=== PATIENT | female | born 1960 | race Caucasian/White ===

== ENCOUNTER → 2018-03-27 23:50 | Outpatient (CLI) | payer OTHER, SELFPAY ==
[2018-03-27 17:15] VITALS: BMI 32.1
[2018-03-28 00:45] LABS: Absolute Lymphocyte Count 2.29 X10^3/ul (0.83-4.51); Absolute Neutrophil Count 3.9 X10^3/uL (2.0-7.7); Basophil# 0.05 X10^3/uL; Basophil% 0.7 % (0-1); Eosinophil# 0.13 X10^3/uL; Eosinophils% 1.9 % (0-5); Hematocrit 43.5 % (37-47); Hemoglobin 15.1 g/dl (12.0-15.0); Lymphocyte # 2.29 X10^3/ul (4.0); Lymphocyte % 33.9 % (19-41); Mean Corp Hgb Conc 34.7 g/gl (32-36); Mean Corpuscular Hgb 32.4 pg (27.0-32.0); Mean Corpuscular Volume 93.3 fL (81-99); Mean Platelet Vol. 10.2 fl (6.2-12.0); Monocyte# 0.41 X10^3/uL; Monocyte% 6.1 % (0-10); Neutrophil # 3.86 X10^3/uL (2.7-7.7); Neutrophil % 57.3 % (47-70); Platelet Count 261 K/mm3 (150-450); RBC Distribution Width CV 11.7 % (11.6-14.6); RBC Distribution Width SD 39.8 fl (35.1-43.9); Red Blood Count 4.66 M/mm3 (4.2-5.4); White Blood Count 6.8 K/mm3 (4.4-11.0)
[2018-03-28 00:46] LABS: POSITIVE COUNT NO; POSITIVE DIFFERENTIAL NO; POSITIVE MORPHOLOGY NO
[2018-03-28 00:48] LABS: ALB/GLOB Ratio 1.2 RATIO (0.9-2.4); AST(SGOT) 19 U/L (15-37); Alanine Aminotransfer ALT/SGPT 20 U/L (13-56); Albumin, Serum 3.8 g/dL (3.2-5.0); Alkaline Phosphatase 60 U/L (45-117); Anion Gap 5 (5-15); BUN 13 mg/dL (7-18); BUN/Creat Ratio 16.7 RATIO (10-20); Calcium,Total 8.6 mg/dL (8.5-10.1); Chloride 105 mmol/L (98-107); Cholesterol 259 mg/dL (200); Creatinine, Serum 0.78 mg/dL (0.55-1.02); EST Glomerular Filtration Rate 81 mL/min (>60); Est Glom Filt Rate - Afr Amer 98 mL/min (>60); Globulin 3.2 g/dL (2.2-4.2); Glucose 87 mg/dL (74-106); High Density Lipoprotein 55 mg/dL; Potassium 4.7 mmol/L (3.5-5.1); Sodium Level 139 mmol/L (136-145); Thyroid Stim Hormone (TSH) 0.27 uIU/mL (0.358-3.74); Triglycerides 207 mg/dL; Very Low Density Lipoprotein 41 mg/dL (5-40)
--- OUTSIDE RECORDS SUMMARY | 2018-05-30 05:49 | XMS RPT_ITS ---
:1960 Author Organization OHIP Care Team Providers Name Role Phone Collin Mcnallya CONTACT LENS BLOCKER-C Attending Unavailable Mcnally, Fransisco CONTACT LENS BLOCKER-C Referring Unavailable MCNALLY FRANSISCO L Referring Unavailable ANETTE SEVERINO Referring Unavailable MCNALLY, FRANSISCO Referring Unavailable MCNALLY FRANSISCO Primary Care Unavailable PROBLEMS PROBLEMS DATE TYPE CONDITION / CODE ATTENDING STATUS SOURCE 03/28/2018 Unknown E03.9 - Mcnally, Active [place] Hypothyroidism, [place] CONTACT LENS BLOCKER-C [facility] unspecified / Hospital E03.9(ICD-10) Repository 03/28/2018 Unknown F41.9 - Anxiety Mcnally, Active [place] disorder, [place] CONTACT LENS BLOCKER-C [facility] unspecified / Hospital F41.9(ICD-10) Repository 03/28/2018 Unknown I10 - Essential Mcnally, Active [place] (primary) [place] CONTACT LENS BLOCKER-C [facility] hypertension / Hospital I10(ICD-10) Repository 12/07/2017 Active Unknown / NA Active [place] [facility] Other [place] Repository 12/07/2017 Admitting Unknown / NA Active [facility] diagnosis [facility](Unknown[facility] Repository PROCEDURES PROCEDURES No Procedure Records FoundRESULTS RESULTS CBC W/DIFF, AUTOMATED Collected: 03/27/2018 Status: F Source: [place] 5:35 PM [facility] REPOSITORY TYPE CODE TESTS RESULT OUT OF RANGE REFERENCE UNITS LAB L100.1000 4.4-11.0 K/mm3 Normal WBC 6.8 LAB L100.1200 4.2-5.4 M/mm3 Normal RBC 4.66 LAB L100.1300 12.0-15.0 g/dl High HGB 15.1 LAB L100.1400 37-47 % Normal HCT 43.5 LAB L100.1500 81-99 fL Normal MCV 93.3 LAB L100.1600 27.0-32.0 pg High MCH 32.4 LAB L100.1700 32-36 g/gl Normal MCHC 34.7 LAB L100.1810 11.6-14.6 % Normal RDW CV 11.7 LAB L100.1820 35.1-43.9 fl Normal RDW SD 39.8 LAB L100.1900 150-450 K/mm3 Normal PLT 261 LAB L100.2000 6.2-12.0 fl Normal MPV 10.2 LAB L100.2100 47-70 % Normal NEUT% 57.3 LAB L100.2200 19-41 % Normal LY% 33.9 LAB L100.2300 0-10 % Normal MONO% 6.1 LAB L100.2400 0-5 % Normal EO% 1.9 LAB L100.2500 0-1 % Normal BASO% 0.7 LAB L100.2550 0.0-0.9 % Normal IM GRAN % 0.100 Result Comment: IG% - Immature Granulocytes (promyelocytes, myelocytes and metamyelocytes) > 1% indicates that a LEFT SHIFT is Present. LAB L100.2620 2.0-7.7 X10 3/uL Normal Absolute Neut 3.9 LAB L100.2720 0.83-4.51 X10 3/ul Normal Absolute Lymph 2.29 Performed By: #### L100.0100 #### [facility] [address] [place], [address] COMPREHENSIVE METABOLIC Collected: 03/27/2018 Status: F Source: [facility] 5:35 PM [facility] REPOSITORY TYPE CODE TESTS RESULT OUT OF RANGE REFERENCE UNITS LAB L501.0100 74-106 mg/dL Normal GLU 87 Result Comment: Please note revised GLUCOSE reference range effective 2017. LAB L501.1000 7-18 mg/dL Normal BUN 13 LAB L501.1100 0.55-1.02 mg/dL Normal CREAT,SERUM 0.78 Result Comment: The validity of the calculated GFR AND GFRAA in patients over 70 years has not been determined. Clinical correlation is essential. LAB L501.1110 >60 mL/min Normal EST GFR 81 Result Comment: Non- GFR Calc LAB L501.1115 >60 mL/min Normal EST GFR - AA 98 Result Comment: GFR Calc LAB L501.1300 10-20 RATIO Normal BUN/CRE 16.7 LAB L501.1500 6.4-8.2 g/dL T Normal PROT 7.0 LAB L501.1800 3.2-5.0 g/dL Normal ALB 3.8 LAB L501.1950 2.2-4.2 g/dL Normal GLOB 3.2 LAB L501.2000 0.9-2.4 RATIO Normal A/G 1.2 LAB L501.2200 8.5-10.1 mg/dL CA Normal 8.6 LAB L501.4100 15-37 U/L Normal AST 19 LAB L501.4305 45-117 U/L Normal ALK P 60 LAB L501.4405 13-56 U/L Normal ALT 20 LAB L501.4600 0.20-1.00 mg/dL T Normal BILI 0.30 LAB L501.5300 136-145 mmol/L NA Normal 139 LAB L501.5600 3.5-5.1 mmol/L K Normal 4.7 LAB L501.5900 98-107 mmol/L CL Normal 105 LAB L501.6100 21.0-32.0 mmol/L Normal CO2 29.0 LAB L501.6200 5-15 Normal GAP 5 Performed By: #### L500.4050, L500.4100, L501.9520 #### [facility] [address] [place], [address] LIPID PROFILE Collected: 03/27/2018 Status: F Source: [place] 5:35 PM [facility] REPOSITORY TYPE CODE TESTS RESULT OUT OF RANGE REFERENCE UNITS LAB L501.4900 200 mg/dL High CHOL 259 Result Comment: <200 mg/dL Desirable 200-240 mg/dL Borderline >240 mg/dL High Risk LAB L501.5000 mg/dL High TRIG 207 Result Comment: The drugs N-Acetylcysteine and Metamizole may falsely depress this assay. Serum Triglycerides Reference Interval Normal <150 mg/dL Borderline high 150 - 199 mg/dL High 200 - 499 mg/dL Very High > or = 500 mg/dL LAB L501.6400 mg/dL Normal HDL 55 Result Comment: The drugs N-Acetylcysteine and Metamizole may falsely depress this assay. Reference Range HDL <40 mg/dL Low HDL Cholesterol HDL >or= 60 mg/dL High HDL Cholesterol LAB L501.6500 0-130 mg/dL High LDL 163 LAB L501.6600 5-40 mg/dL High VLDL 41 Performed By: #### L500.4050, L500.4100, L501.9520 #### [facility] [address] [place], [address] THYROID STIM HORMONE Collected: 03/27/2018 Status: F Source: [place] ([facility]) 5:35 PM [facility] REPOSITORY TYPE CODE TESTS RESULT OUT OF RANGE REFERENCE UNITS LAB L501.9520 0.358-3.74 uIU/mL Low TSH 0.27 Performed By: #### L500.4050, L500.4100, L501.9520 #### [facility] [address] [place], [address] OFFICE VISIT Observed: 03/27/2018 Status: F Source: [place] 5:32 PM [facility] REPOSITORY After Hours [facility] [address] [place] [address] OFFICE VISIT Date of Service: 03/27/18 MR#: [id number] Acct: [id number] Name: ERIK SHEPHERD Rep #: [id number] : 1960 Provider: LAURA Mcnally Age/Sex: 57/F Location: [facility] Status: Signed Intake Vital Signs03/27/18 Height 5 ft 6 in 03/27/18 Weight: 199 lb Intake Visit Reasons: RX REFILLS Allergies levofloxacin [From Levaquin] Adverse Reaction (Intermediate, Verified 01/13/18 16:32) tendon pain penicillin G [From Bicillin C-R] Adverse Reaction (Intermediate, Verified 01/13/18 16:32) u penicillin G procaine [From Bicillin C-R] Adverse Reaction (Intermediate, Verified 01/13/18 16:32) u Hjqjosd-Svs-Dio Reductase Inhibitor Adverse Reaction (Intermediate, Unverified 01/13/18 16:32) increase fibromyalgia Medications albuterol sulfate HFA 90 mcg/actuation aerosol inhaler 1 puff INHALATION Q4H PRN #8 g 01/13/18 [Rx Confirmed 01/13/18] clarithromycin 500 mg tablet 500 mg PO BID #20 tab 11/09/18 [Rx Confirmed 01/13/18] omega-3 fatty acids 1,000 mg capsule 1,000 mg PO DAILY 01/13/18 [History Confirmed 01/13/18] duloxetine 60 mg capsule,delayed release 60 mg PO DAILY #90 cap 03/27/18 [Rx Confirmed 03/27/18] levothyroxine 137 mcg tablet 137 mcg PO DAILY #90 tab 03/27/18 [Rx Confirmed 03/27/18] metoprolol succinate ER 25 mg tablet,extended release 24 hr 25 mg PO DAILY #90 tab 03/27/18 [Rx Confirmed 03/27/18] pantoprazole 40 mg tablet,delayed release 40 mg PO DAILY #90 tab 03/27/18 [Rx Confirmed 03/27/18] [facility] Medical History Cyst of ovary (Acute) Depression (Acute) EGD neg Dr suarez with biopsy (Acute) Fibroids (Acute) Fibromyalgia (Acute) GERD (gastroesophageal reflux disease) (Acute) Hypothyroid (Acute) IBS (irritable bowel syndrome) (Acute) Menopause (Acute) Recurrent UTI (Acute) Thyroid cancer (Acute) polyps (Acute) Chronic fatigue (Chronic) Surgical History H/O thyroidectomy (Acute) History of total abdominal hysterectomy and bilateral salpingo- oophorectomy (Acute) Family History Other Breast cancer Diabetes High cholesterol Hypertension Hypothyroid Ovarian cancer Prostate cancer Social History Smoking Status: Current every day smoker HPI HPI (General) HPI HPI: ERIK SHEPHERD, is a 57 F who presents to the office today for medication refills to express scripts and labs .No concerns ROS Const Constitutional: No anorexia, body ache, chills, excessive sweating, fatigue, fever(s), frequent falls, headache(s), decreased energy, malaise, night sweats, snoring, weakness, weight change, sleep problems, abnormal sleep pattern, change in appetite or other Eyes Eyes: No blurry vision, change in vision, double vision, discharge, dry eyes, bulging eyes, floaters, visual disturbances, eye pain, light sensitivity, spots in vision, tunnel vision or other ENT ENT: No headache(s), abnormal hearing, ear pain, ear discharge, ear pressure, hearing loss, tinnitus, dizziness/vertigo, balance problems, nosebleed/epistaxis, nasal congestion, nasal obstruction, nose pain, sinus pressure, sinus pain, nasal discharge, post nasal drip, facial pain, dental pain, dry mouth, difficulty swallowing, bad breath, hoarseness, lip swelling, mouth lesions, mouth pain, neck pain, sore throat, tongue swelling, throat swelling or other Resp Respiratory: No snoring, cough, change in phlegm color, chest congestion, excessive phlegm production, hemoptysis, pain on inspiration, shortness of breath, pain with cough, stridor, wheezing or other Cardio Cardiology: No excessive sweating, chest pain at rest, chest pain with exertion, leg pain with exertion, shortness of breath, dyspnea on exertion, generalized swelling, irregular heart rhythm, lightheadedness, orthopnea, radiating jaw, neck or arm pain, fast heart rate, slow heart rate, palpitations or other Gastro GI: No other, No Difficulty Swallowing, No abdominal pain, No belching, No bloating, No change in bowel habits, No change in stool character, No coffee ground emesis, No constipation, No cramping, No diarrhea, No heartburn, No feeling full early, No excessive flatus, No incontinent of stools, No Vomiting blood/hematemesis, No Blood in stool, No loose stools, No Black,tarry stools, No nausea/dyspepsia, No pain with swallowing, No vomiting, No hemorrhoids, No rectal pain Genitourinary: No urinary frequency, difficulty urinating, burning urination, painful urination, urinary urgency or blood in urine Musc Musculoskeletal: No neck pain, abnormal walking, joint pain, back pain, deformity, joint swelling, limited range of motion, loss of height, muscle cramps, muscle weakness, decreased muscle mass, body aches, numbness, radiating pain into limb, stiffness, tingling or other Skin Skin: No acne, hair loss, change in hair, nail changes, boil, change in skin color, dry skin, redness, excessive hair growth, yellowing of the skin, lesions, itching, rash, skin pain, skin ulcer, sores, skin swelling, wounds or other Breast Breast: No other Neuro Neurology: No frequent falls, headache(s), weakness, visual disturbances, abnormal hearing, abnormal walking, numbness, tingling, abnormal movements, abnormal speech, behavioral changes, confusion, unsteady gait/balance, dizziness, lack of coordination, loss of vision, memory loss, restless legs, fainting, tremor(s) or other Psych Psychiatric: No abnormal sleep pattern, No change in appetite, No behavioral changes, No confusion, No memory loss, No lack of enjoyment, No anxiety, No depression, No difficulty concentrating, No hopelessness, No irritability, No mood swings, No panic attacks, No paranoia, No Thoughts of harming yourself/Others, No hallucinations, No other Endo Endo: No excessive sweating, No fatigue, No other Aller/Imm Allergy/Immunologic: No lip swelling, tongue swelling, throat swelling, wheezing or itchy eyes Exam Const Constitutional: Yes cooperative, Yes healthy appearing Orientation: Yes alert, awake and oriented x3 HENMT Head: Yes normocephalic Ear: Yes hearing grossly normal bilaterally Neck Neck: normal visual inspection Thyroid: thyroid normal Eyes General: Yes appearance normal, both eyes and all related structures Chest Chest palpation AND inspection: Yes normal inspection of the chest Resp Effort AND Inspection: No stridor Auscultation: Yes clear to auscultation bilaterally Cardio Palpitation: Yes normal PMI Rate: Yes regular rate Rhythm: Yes regular rhythm GI Inspection: Yes normal to inspection Auscultation: Yes normal bowel sounds Rectal Exam: No hemorrhoids Musc Cervical Spine: Yes cervical ROM normal Thoracic/Lumbar Spine: Yes thoracic and lumbar spine normal to inspection Skin General: no rashes or lesions noted Lesions: Yes no lesions Extrem General: Yes normal to inspection Neuro General: Yes alert and oriented x3 Motor: No weakness Psych Appearance: Positive grossly normal Mood: Positive congruent mood Affect: Positive normal affect Assessment AND Plan Problems 1. Hypothyroidism (acquired) E03.9 2. Essential hypertension I10 3. Generalized anxiety disorder F41.1 Patient Instructions Take the medication as prescibed Will call with the results of the labs follow up as needed Orders Orders: Medications New: Coding Level of Care Code Off vis,est,level 3 Diagnoses Hypothyroidism (acquired) E03.9 Essential hypertension I10 Hypertension type: essential hypertension Generalized anxiety disorder F41.1 Anxiety disorder type: generalized anxiety disorder 03/27/18 7712 <Electronically signed by Fransisco OSCAR> Date Fransisco OSCAR CC: XR LUMBAR 2V AP/LAT Observed: 03/20/2018 Status: F Source: [place] 4:46 PM [facility] REPOSITORY * * *Final Report* * * DATE OF EXAM: Mar 20 2018 4:46PM MDX 5229 - XR LUMBAR 2V AP/LAT / PROCEDURE REASON: LOW BACK PAIN, LEFT LEG PAIN, RIGHT HIP PAIN * * * * Physician Interpretation * * * * PROCEDURE: Lumbar spine and right hip INDICATION: LOW BACK PAIN, LEFT LEG PAIN, RIGHT HIP PAIN.LOWER BACK AND HIP PAIN TECHNIQUE: XR HIP 2V AP/LAT RT, XR LUMBAR 2V AP/LAT COMPARISON: None FINDINGS: Lumbar spine: There is minimal scoliotic curvature without fracture or subluxation. There is mild disc space narrowing at L levels with associated vertebral body spur formation. Vacuum disks are noted at L3-4 and L4-5. No pars defects are seen. Sacroiliac joints are unremarkable. Right hip: No fracture or dislocation. Hip joint space is maintained. Minimal acetabular spurring and mild spurring from the greater trochanter. Soft tissues are unremarkable. IMPRESSION: Degenerative changes Machine Candle Molder: CHUNG Transcribe Date/Time: Mar 20 2018 4:57P Dictated by : CYNTHIA VANG MD This examination was interpreted and the report reviewed and electronically signed by: CYNTHIA VANG MD on Mar 20 2018 4:58PM EST [id number] XR HIP 2V AP/LAT RT Observed: 03/20/2018 Status: F Source: [place] 4:46 PM [facility] REPOSITORY * * *Final Report* * * DATE OF EXAM: Mar 20 2018 4:46PM MDX 5280 - XR HIP 2V AP/LAT RT / PROCEDURE REASON: LOW BACK PAIN, LEFT LEG PAIN, RIGHT HIP PAIN * * * * Physician Interpretation * * * * PROCEDURE: Lumbar spine and right hip INDICATION: LOW BACK PAIN, LEFT LEG PAIN, RIGHT HIP PAIN.LOWER BACK AND HIP PAIN TECHNIQUE: XR HIP 2V AP/LAT RT, XR LUMBAR 2V AP/LAT COMPARISON: None FINDINGS: Lumbar spine: There is minimal scoliotic curvature without fracture or subluxation. There is mild disc space narrowing at L levels with associated vertebral body spur formation. Vacuum disks are noted at L3-4 and L4-5. No pars defects are seen. Sacroiliac joints are unremarkable. Right hip: No fracture or dislocation. Hip joint space is maintained. Minimal acetabular spurring and mild spurring from the greater trochanter. Soft tissues are unremarkable. IMPRESSION: Degenerative changes Machine Candle Molder: PSCB Transcribe Date/Time: Mar 20 2018 4:57P Dictated by : CYNTHIA VANG MD This examination was interpreted and the report reviewed and electronically signed by: CYNTHIA VANG MD on Mar 20 2018 4:58PM EST [id number] OFFICE VISIT Observed: 01/14/2018 Status: F Source: [place] 3:41 PM [facility] REPOSITORY After Hours [place] [address] [place] [address] OFFICE VISIT Date of Service: 01/13/18 MR#: [id number] Acct: [id number] Name: ERIK SHEPHERD Rep #: [id number] : 1960 Provider: LAURA Mcnally Age/Sex: 57/F Location: [facility] Status: Signed Intake Vital Signs01/13/18 Height 5 ft 6 in 01/13/18 Weight: 187 lb Intake Visit Reasons: SINUSES, COUGH Accompanied by: self Is patient in pain?: No Allergies levofloxacin [From Levaquin] Adverse Reaction (Intermediate, Verified 01/13/18 16:32) tendon pain penicillin G [From Bicillin C-R] Adverse Reaction (Intermediate, Verified 01/13/18 16:32) u penicillin G procaine [From Bicillin C-R] Adverse Reaction (Intermediate, Verified 01/13/18 16:32) u Yydmslr-Xvj-Uqk Reductase Inhibitor Adverse Reaction (Intermediate, Unverified 01/13/18 16:32) increase fibromyalgia Medications albuterol sulfate HFA 90 mcg/actuation aerosol inhaler 1 puff INHALATION Q4H PRN #8 g 01/13/18 [Rx Confirmed 01/13/18] clarithromycin 500 mg tablet 500 mg PO BID #20 tab 01/13/18 [Rx Confirmed 01/13/18] duloxetine 60 mg capsule,delayed release 60 mg PO DAILY 01/13/18 [History Confirmed 01/13/18] levothyroxine 137 mcg tablet 137 mcg PO DAILY 01/13/18 [History Confirmed 01/13/18] metoprolol succinate ER 25 mg tablet,extended release 24 hr 25 mg PO DAILY 01/13/18 [History Confirmed 01/13/18] omega-3 fatty acids 1,000 mg capsule 1,000 mg PO DAILY 01/13/18 [History Confirmed 01/13/18] pantoprazole 40 mg tablet,delayed release 40 mg PO DAILY 01/13/18 [History Confirmed 01/13/18] Is last menstrual period known: No Post menopausal: Yes Patient : No PFSH Medical History Cyst of ovary (Acute) Depression (Acute) EGD neg Dr suarez with biopsy (Acute) Fibroids (Acute) Fibromyalgia (Acute) GERD (gastroesophageal reflux disease) (Acute) Hypothyroid (Acute) IBS (irritable bowel syndrome) (Acute) Menopause (Acute) Recurrent UTI (Acute) Thyroid cancer (Acute) polyps (Acute) Chronic fatigue (Chronic) Surgical History H/O thyroidectomy (Acute) History of total abdominal hysterectomy and bilateral salpingo- oophorectomy (Acute) Family History Other Breast cancer Diabetes High cholesterol Hypertension Hypothyroid Ovarian cancer Prostate cancer Social History Smoking Status: Current every day smoker HPI HPI (General) HPI HPI: Erik Shepherd, is a 57 F who presents to the office today for congestion and cough for Jan 01 and got a z-paola and helped a little she still aches all over and then started the coughing 2 days ago . nose is clear nasal drainage. ROS Const Constitutional: Positive for fatigue and headache(s) Eyes Eyes: Positive for eye pain ENT ENT: Positive for headache(s), dizziness/vertigo, sinus pain, post nasal drip, sore throat and bad breath Resp Respiratory: Positive for cough Cough: Yes non-productive and wheezing Cardio Cardiology: Positive for shortness of breath Gastro GI: Yes nausea/dyspepsia Musc Musculoskeletal: Positive for joint pain and body aches Neuro Neurology: Positive for headache(s) Endo Endo: Yes fatigue Aller/Imm Allergy/Immunologic: Positive for wheezing Exam Const Constitutional: Yes cooperative, Yes healthy appearing Orientation: Yes alert, awake and oriented x3 HENMT Head: Yes normocephalic Ear: Yes hearing grossly normal bilaterally Neck Neck: normal visual inspection Thyroid: thyroid normal Eyes General: Yes appearance normal, both eyes and all related structures Chest Chest palpation AND inspection: Yes normal inspection of the chest Resp Effort AND Inspection: Yes normal respiratory effort Auscultation: Yes clear to auscultation bilaterally Cardio Palpitation: Yes normal PMI Rate: Yes regular rate Rhythm: Yes regular rhythm GI Inspection: Yes normal to inspection Auscultation: Yes normal bowel sounds Musc Cervical Spine: Yes cervical ROM normal Thoracic/Lumbar Spine: Yes thoracic and lumbar spine normal to inspection Skin General: no rashes or lesions noted Lesions: Yes no lesions Extrem General: Yes normal to inspection Neuro General: Yes alert and oriented x3 Psych Appearance: Positive grossly normal Mood: Positive congruent mood Affect: Positive normal affect Assessment AND Plan Problems 1. Acute non-recurrent maxillary sinusitis J01.00 2. Cough R05 Patient Instructions Take the antibiotics till gone with food Use the ventolin inhaler as needed Medications New: Coding Level of Care Code Off vis,est,level 3 Diagnoses Acute non-recurrent maxillary sinusitis J01.00 Recurrence: non-recurrent Cough R05 01/14/18 1541 <Electronically signed by Fransisco OSCAR> Date Fransisco OSCAR CC: OFFICE VISIT (URGENT Observed: 12/25/2017 Status: K Source: [facility]) 11:20 AM HOSPITALS REPOSITORY Chief Complaint Cold Symptoms History of Present Illness 57-year-old female smoker with a five-day history of upper respiratory symptoms, sinus pressure, postnasal drip, and a sore throat. She has had some sweats.Review of systems is otherwise negative for co nstitutional, ear nose and throat, neck, heart, lungs, and abdomen. Review of Systems Constitutional: as noted in HPI. Past Medical History History of Anxiety (300.00) (F41.9) History of acute sinusitis (V12.69) (Z87.09) History of acute sinusitis (V12.69) (Z87.09) History of chronic fatigue syndrome (V13.89) (Z87.898) History of depression (V11.8) (Z86.59) History of fibromyositis (V13.59) (Z87.39) History of heartburn (V12.79) (Z87.898) Surgical History History of Hysterectomy done in about 2004, Family History Family history of Hyperlipidemia Family history of Ovarian Cancer (V16.41) Social History Alcohol Use (History) 1 glass a week In The Family Child son committed suicide 2 years ago Tobacco use (305.1) (Z72.0) Allergies Penicillins severe sore on mouth; Updated By: Krissy Garduno; 01/04/2012 12:31:14 PM swollen lips and mouth sores Current Meds Azithromycin 250 MG Oral Tablet; TAKE 2 TABLETS ON DAY 1 THEN TAKE 1 TABLET A DAY FOR 4 DAYS; Therapy: 04Jan2012 to (Last Rx:04Jan2012) Requested for: 04Jan2012 Ordered Rx By: Krissy Garduno; Dispense: 0 Days ; #:6 Tablet; Refill: 0;For: PMH: History of acute sinusitis; LEWIS = N; Verified Transmission to [id number]; Last Updated By: Ivone Heaton; 01/04/2012 12:42:11 PM Albuterol Sulfate NEBU; Therapy: (Recorded:13Mar2017) to Recorded Dispense: 0 Days ; #: Sufficient NEBU; Refill: 0; LEWIS = N; Record; Last Updated By: Eleanor Cheema; 03/13/2017 1:47:37 PM Cymbalta 60 MG Oral Capsule Delayed Release Particles; Therapy: 06Jan2011 to Recorded Dispense: 90 Days ; #:90 CPEP; Refill: 0; LEWIS = N; Record; Last Updated By: Angelina Salazar; 01/04/2012 12:11:11 PM MethIMAzole 5 MG Oral Tablet; Therapy: 27Jun2011 to Recorded Dispense: 90 Days ; #:30 TABS; Refill: 0; LEWIS = N; Record; Last Updated By: Angelina Salazar; 01/04/2012 12:11:11 PM Metoprolol Tartrate TABS; Therapy: (Recorded:13Mar2017) to Recorded Dispense: 0 Days ; #: Sufficient TABS; Refill: 0; LEWIS = N; Record; Last Updated By: Eleanor Cheema; 03/13/2017 1:47:37 PM Pantoprazole Sodium 40 MG Oral Tablet Delayed Release; Therapy: [id number] to Recorded Dispense: 90 Days ; #:90 TBEC; Refill: 0; LEWIS = N; Record; Last Updated By: Angelina Salazar; 01/04/2012 12:11:11 PM Synthroid TABS; Therapy: (Recorded:13Mar2017) to Recorded Dispense: 0 Days ; #: Sufficient TABS; Refill: 0; LEWIS = N; Record; Last Updated By: Eleanor Cheema; 03/13/2017 1:47:37 PM Veramyst 27.5 MCG/SPRAY SUSP; Therapy: [id number] to Recorded Dispense: 30 Days ; #:10 SUSP; Refill: 0; LEWIS = N; Record; Last Updated By: Angelina Salazar; 01/04/2012 12:11:11 PM Vivelle-Dot 0.05 MG/24HR Transdermal Patch Twice Weekly; Therapy: 06Jan2011 to Recorded Dispense: 90 Days ; #:24 PTTW; Refill: 0; LEWIS = N; Record; Last Updated By: Angelina Salazar; 01/04/2012 12:11:11 PM Vitals Vital Signs Recorded: 25Dec2017 11:12AM Smcqzrbrtxd92.8 F Heart Rate70 Daouyaluxja34 Lvzbxwwb234 Vktnfunhr32 Height5 ft 5 in Lazpis137 lb BMI Fwtgdqtent51.79 BSA Calculated1.91 O2 Riljzqwuhz13 Pain ScaleHA 4-6 Physical Exam Patient appears in no apparent distress and is well-hydrated. Vital signs noted. There is tenderness of the maxillary sinuses. Examination of the ears, nose, throat, neck, and lungs is normal. Diagnoses/Problems Acute sinusitis (461.9) (J01.90) Orders Acute sinusitis Start: Azithromycin 250 MG Oral Tablet; TAKE 2 TABLETS ON DAY 1 THEN TAKE 1 TABLET A DAY FOR 4 DAYS Rx By: Alejandro Moura; Dispense: 0 Days ; #:1 X 6 Tablet Disp Pack; Refill: 0;For: Acute sinusitis; LEWIS = N; Sent To: [facility]- [place], Patient Discussion/Summary Today you were seen by Zeny Please see your primary care physician in 7 days. as needed Tylenol Sinus, throat lozenges, increase fluids, and rest. Stop smoking. End of Encounter Meds Albuterol Sulfate NEBU; Therapy: (Recorded:13Mar2017) to Recorded Azithromycin 250 MG Oral Tablet; TAKE 2 TABLETS ON DAY 1 THEN TAKE 1 TABLET A DAY FOR 4 DAYS; Therapy: 25Dec2017 to (Last Rx:25Dec2017) Ordered Azithromycin 250 MG Oral Tablet; TAKE 2 TABLETS ON DAY 1 THEN TAKE 1 TABLET A DAY FOR 4 DAYS; Therapy: 04Jan2012 to (Last Rx:04Jan2012) Requested for: 04Jan2012 Ordered Cymbalta 60 MG Oral Capsule Delayed Release Particles (DULoxetine HCl); Therapy: 06Jan2011 to Recorded MethIMAzole 5 MG Oral Tablet; Therapy: 27Jun2011 to Recorded Metoprolol Tartrate TABS; Therapy: (Recorded:13Mar2017) to Recorded Pantoprazole Sodium 40 MG Oral Tablet Delayed Release; Therapy: 13Sep2011 to Recorded Synthroid TABS (Levothyroxine Sodium); Therapy: (Recorded:13Mar2017) to Recorded Veramyst 27.5 MCG/SPRAY SUSP; Therapy: 10Feb2011 to Recorded Vivelle-Dot 0.05 MG/24HR Transdermal Patch Twice Weekly (Estradiol); Therapy: 06Jan2011 to Recorded Signatures Electronically signed by : Alejandro Moura MD; Dec 25 2017 11:20AM EST (Author) MAMMOGRAM SCREENING Observed: 12/07/2017 Status: F Source: [facility] WITH CAD IF PERFORMED 12:18 PM HEALTH SYSTEM REPOSITORY Performed at [facility] APPROVED BY: Reji Donahue MD #[id number] - MAMMOGRAM SCREENING WITH CAD IF PERFORMED BILATERAL DIGITAL SCREENING MAMMOGRAM WITH CAD WITH MEDIOLATERAL OBLIQUE CRANIOCAUDAL: 12/07/2017 CLINICAL: Routine screening mammogram. Patient reports no breast problems. Comparison is made to exams dated: 09/30/2016 mammogram, 09/16/2015 mammogram, and 09/11/2014 mammogram - [facility]. There are scattered fibroglandular elements in both breasts. Current study was also evaluated with a Computer Aided Detection (CAD) system. No significant masses, calcifications, or other findings are seen in either breast. There has been no significant interval change. IMPRESSION: NEGATIVE There is no mammographic evidence of malignancy. A 1 year screening mammogram is recommended. Based on a modified Majo Model, this patient's calculated lifetime risk of developing breast cancer is 9.1%. The patient was notified of the results. Reji Donahue M.D. /flower:12/07/2017 13:23:57 Tray Delivery Aide: Denia Marroquin)(M), [facility] letter sent: Normal Birad 1 or 2 Mammogram BI-RADS: 1 Negative ALLERGIES ALLERGIES DATE TYPE / NAME / CODE REACTION SEVERITY SOURCE CODE 01/13/2018 Drug Mbyeiun-Fdn-Iyo increase [place] Allergy/41 Reductase fibromyalgia Community [id number](SN Inhibitor/[id number] Hospital OMED CT) 95(RXNORM) Repository 01/13/2018 Drug penicillin G u [place] Allergy/41 procaine/[id number] Community [id number](SN 1(RXNORM) [facility] OMED CT) Repository 01/13/2018 Drug penicillin u [place] Allergy/41 G/[id number](RXNOR Community [id number]( M) [facility] OMED CT) Repository 01/13/2018 Drug levofloxacin/F0060 tendon pain [place] Allergy/41 08119(RXNORM) Community 8564509([facility] OMED CT) Repository 09/24/2013 Drug CITRUS AND INTOLERANCE [place] Class/4195 DERIVATIVES Clinic Other 62676([facility] ED CT) Repository 12/17/2010 Drug KUQKCPF-WJM-VVI OTHER: SEE C [place] Class/4195 REDUCTASE Clinic Other 15775([facility] INHIBITORS [place] ED CT) Repository 01/11/2010 DRUG ROSUVASTATIN OTHER: SEE C [place] INGREDI/41 CALCIUM Clinic Other [id number]([facility] OMED CT) Repository 01/11/2010 DRUG PAROXETINE HCL OTHER: SEE C [place] INGREDI/41 Clinic Other [id number]([facility] OMED CT) Repository 01/07/2010 DRUG LEVOFLOXACIN OTHER: SEE C [place] INGREDI/41 Clinic Other [id number]([facility] OMED CT) Repository 01/07/2010 DRUG PENICILLIN G ANAPHYLAXIS [place] INGREDI/41 Clinic Other [id number]([facility] OMED CT) Repository NG/[id number] CITRUS AND [facility] 06(SNOMED DERIVATIVES [facility] CT) Repository NG/[id number] ROSUVASTATIN [facility] 06(SNOMED [facility] CT) Repository NG/[id number] LEVOFLOXACIN [facility] 06(SNOMED [facility] System CT) Repository NG/[id number] PAROXETINE HCL [facility] 06(SNOMED [facility] CT) Repository NG/[id number] PENICILLIN G [facility] 06(SNOMED Health System CT) Repository NG/[id number] MIUTRYC-VJX-WEH [facility] 06([facility] System CT) INHIBITORS Repository ENCOUNTERS ENCOUNTERS ADMIT/DISCHARGE ACCOUNT NUMBER ADMITTING ENCOUNTER LOCATION SOURCE CLASS 03/27/2018 [id number] [facility] Rep[facility] 03/20/2018 [id number] Ambulatory [facility] Other [place] Repository 12/07/2017/12/08/19 [id number] Ambulatory [address] Other [place] Repository 12/07/2017/12/08/19 [id number] Ambulatory [address] MEDICAL Repository CENTERBuildi ng:AKABIMAEL PAYERS PAYERS ENCOUNTER GUARANTOR PAYER SUBSCRIBER SOURCE 03/27/2018 ERIK R Primary ERIK R [place] [id number] Insurance:MEDICAL GREGOIREDOB: [facility] [id number] Number: Repository [id number]: [phone] [id number] [phone] (HP) Date:[id number] [address]YW: 03/27/2018 [facility]:SELF PAY [facility] Number: Effective Repository Date:2018-03-27 12/07/2017 ERIK VALENCIA [facility] GREGOIREDOB: Insurance:[facility] BEEEDOB: [facility] Number: [id number] [id number] [place], [place] Date: [address]Riz: (HP)
== END ==
PROVIDERS: Referring Provider Nurse Practitioner; Visit Provider Nurse Practitioner
DX: I10 Essential (primary) hypertension (principal); E03.9 Hypothyroidism, unspecified; F41.9 Anxiety disorder, unspecified
CPT/HCPCS: 80053; 80061; 84443; 85025

== ENCOUNTER → 2019-02-10 14:35 | Outpatient (CLI) | payer OTHER, SELFPAY ==
[2019-02-10 10:06] VITALS: BMI 31.1
[2019-02-10 14:59] LABS: Absolute Neutrophil Count 2.2 X10^3/uL (2.0-7.7); Basophil# 0.04 X10^3/uL; Eosinophil# 0.12 X10^3/uL; Eosinophils% 2.9 % (0-5); Hematocrit 44.5 % (37-47); Lymphocyte % 33.8 % (19-41); Mean Corp Hgb Conc 33.7 g/dL (32-36); Mean Corpuscular Hgb 32.1 pg (27.0-32.0); Mean Corpuscular Volume 95.1 fL (81-99); Mean Platelet Vol. 9.7 fl (6.2-12.0); Monocyte# 0.38 X10^3/uL; Monocyte% 9.2 % (0-10); NRBC Flagged by Analyzer 0 % (0-5); Neutrophil % 53.1 % (47-70); Platelet Count 251 K/mm3 (150-450); RBC Distribution Width SD 41.3 fl (35.1-43.9); Red Blood Count 4.68 M/mm3 (4.2-5.4); White Blood Count 4.1 K/mm3 (4.4-11.0)
[2019-02-10 15:33] LABS: Vitamin D,25 Hydroxy 32.2 ng/mL (29.95-100.01)
[2019-02-10 15:37] LABS: ALB/GLOB Ratio 1.2 RATIO (0.9-2.4); AST(SGOT) 22 U/L (15-37); Alanine Aminotransfer ALT/SGPT 23 U/L (13-56); Albumin, Serum 3.8 g/dL (3.2-5.0); Alkaline Phosphatase 56 U/L (45-117); Anion Gap 3 (5-15); BUN 10 mg/dL (7-18); BUN/Creat Ratio 10.6 RATIO (10-20); Calcium,Total 9.1 mg/dL (8.5-10.1); Chloride 107 mmol/L (98-107); Cholesterol 288 mg/dL (200); Creatinine, Serum 0.94 mg/dL (0.55-1.02); EST Glomerular Filtration Rate 65 mL/min (>60); Est Glom Filt Rate - Afr Amer 78 mL/min (>60); Estimated Creatinine Clearance 61.07 ml/min; Globulin 3.2 g/dL (2.2-4.2); Glucose 77 mg/dL (74-106); High Density Lipoprotein 69 mg/dL; Potassium 4.9 mmol/L (3.5-5.1); Sodium Level 140 mmol/L (136-145); Thyroid Stim Hormone (TSH) 1.47 uIU/mL (0.358-3.74); Triglycerides 113 mg/dL; Very Low Density Lipoprotein 23 mg/dL (5-40)
== END ==
PROVIDERS: Visit Provider Nurse Practitioner
DX: Z00.00 Encounter for general adult medical examination without abnormal findings (principal)
CPT/HCPCS: 80053; 80061; 82306; 84443; 85025

== ENCOUNTER → 2020-03-18 | Outpatient (CLI) | payer OTHER, SELFPAY ==
[2020-03-18 20:03] VITALS: BMI 31.9
[2020-03-18 22:10] LABS: Absolute Lymphocyte Count 2.55 X10^3/uL (0.83-4.51); Absolute Neutrophil Count 3.2 X10^3/uL (2.0-7.7); Basophil# 0.07 X10^3/uL; Basophil% 1.1 % (0-1); Eosinophil# 0.16 X10^3/uL; Eosinophils% 2.5 % (0-5); Hemoglobin 14.4 g/dL (12.0-15.0); Lymphocyte # 2.55 X10^3/ul (4.0); Lymphocyte % 39.5 % (19-41); Mean Corp Hgb Conc 33.5 g/dL (32-36); Mean Corpuscular Hgb 32.1 pg (27.0-32.0); Mean Corpuscular Volume 95.8 fL (81-99); Mean Platelet Vol. 9.6 fl (6.2-12.0); Monocyte# 0.46 X10^3/uL; Monocyte% 7.1 % (0-10); NRBC Flagged by Analyzer 0 % (0-5); Neutrophil # 3.21 X10^3/uL (2.7-7.7); Neutrophil % 49.6 % (47-70); Platelet Count 264 K/mm3 (150-450); RBC Distribution Width CV 11.7 % (11.6-14.6); RBC Distribution Width SD 41.1 fl (35.1-43.9); Red Blood Count 4.49 M/mm3 (4.2-5.4); White Blood Count 6.5 K/mm3 (4.4-11.0)
[2020-03-18 22:27] LABS: ALB/GLOB Ratio 1.1 RATIO (0.9-2.4); AST(SGOT) 14 U/L (15-37); Alanine Aminotransfer ALT/SGPT 20 U/L (13-56); Albumin, Serum 3.8 g/dL (3.2-5.0); Alkaline Phosphatase 63 U/L (45-117); Anion Gap 4 (5-15); BUN 10 mg/dL (7-18); BUN/Creat Ratio 11.7 RATIO (10-20); Chloride 106 mmol/L (98-107); Cholesterol 273 mg/dL (200); Creatinine, Serum 0.86 mg/dL (0.55-1.02); EST Glomerular Filtration Rate 72 mL/min (>60); Est Glom Filt Rate - Afr Amer 87 mL/min (>60); Globulin 3.4 g/dL (2.2-4.2); Glucose 89 mg/dL (74-106); High Density Lipoprotein 66 mg/dL; Protein, Total 7.2 g/dL (6.4-8.2); Sodium Level 139 mmol/L (136-145); T4 Free Direct 1.38 ng/dL (0.76-1.46); Thyroid Stim Hormone (TSH) 1.08 uIU/mL (0.358-3.74); Triglycerides 128 mg/dL; Very Low Density Lipoprotein 26 mg/dL (5-40)
[2020-03-20 15:05] LABS: Vitamin D 1,25-Dihydroxy 71.8 pg/mL (19.9-79.3)
== END | disposition home or self-care (01) ==
PROVIDERS: Referring Provider Nurse Practitioner; Visit Provider Nurse Practitioner
DX: I10 Essential (primary) hypertension (principal); E78.00 Pure hypercholesterolemia, unspecified; E55.9 Vitamin D deficiency, unspecified; E03.9 Hypothyroidism, unspecified
CPT/HCPCS: 80053; 80061; 82652; 84439; 84443; 85025

== ENCOUNTER → 2021-09-21 | Outpatient (CLI) | payer MEDICAID, SELFPAY ==
[2021-09-21 22:50] LABS: ALB/GLOB Ratio 1.2 RATIO (0.9-2.4); AST(SGOT) 13 U/L (15-37); Absolute Neutrophil Count 3.7 X10^3/uL (2.0-7.7); Alanine Aminotransfer ALT/SGPT 19 U/L (13-56); Albumin, Serum 3.7 g/dL (3.2-5.0); Alkaline Phosphatase 56 U/L (45-117); Anion Gap 8 (5-15); BUN 9 mg/dL (7-18); Basophil# 0.05 X10^3/uL; Basophil% 0.8 % (0-1); Calcium,Total 8.9 mg/dL (8.5-10.1); Chloride 99 mmol/L (98-107); Cholesterol 272 mg/dL (200); EST Glomerular Filtration Rate 60 mL/min (>60); Eosinophils% 1.5 % (0-5); Est Glom Filt Rate - Afr Amer 73 mL/min (>60); Globulin 3.2 g/dL (2.2-4.2); Glucose 84 mg/dL (74-106); Hematocrit 40.8 % (37-47); Hemoglobin 14.3 g/dL (12.0-15.0); High Density Lipoprotein 60 mg/dL; Lymphocyte % 34.1 % (19-41); Mean Corpuscular Hgb 32.6 pg (27.0-32.0); Mean Corpuscular Volume 93.2 fL (81-99); Mean Platelet Vol. 9.6 fl (6.2-12.0); Monocyte# 0.39 X10^3/uL; NRBC Flagged by Analyzer 0 % (0-5); Neutrophil # 3.71 X10^3/uL (2.7-7.7); Neutrophil % 57.4 % (47-70); Platelet Count 253 K/mm3 (150-450); Potassium 3.7 mmol/L (3.5-5.1); Protein, Total 6.9 g/dL (6.4-8.2); RBC Distribution Width CV 11.9 % (11.6-14.6); RBC Distribution Width SD 40.8 fl (35.1-43.9); Red Blood Count 4.38 M/mm3 (4.2-5.4); Sodium Level 132 mmol/L (136-145); Thyroid Stim Hormone (TSH) 1.28 uIU/mL (0.358-3.74); Triglycerides 251 mg/dL; Very Low Density Lipoprotein 50 mg/dL (5-40); White Blood Count 6.5 K/mm3 (4.4-11.0)
[2021-09-21 23:50] LABS: PTHIN 68.9 pg/mL (18.4-80.1)
== END | disposition home or self-care (01) ==
PROVIDERS: Visit Provider Nurse Practitioner
DX: I10 Essential (primary) hypertension (principal); E78.00 Pure hypercholesterolemia, unspecified; E03.9 Hypothyroidism, unspecified
CPT/HCPCS: 80053; 80061; 83970; 84443; 85025

== ENCOUNTER → 2021-12-18 | Outpatient (CLI) | payer OTHER, SELFPAY | END | disposition home or self-care (01) | LOC: LABSPEC 14:50 | PROVIDERS: Visit Provider Obstetrics & Gynecology | DX: R30.0 Dysuria (principal) | CPT/HCPCS: 87086; 87088 ==

== ENCOUNTER 2022-05-20 09:54 | Day surgery (SDC) | payer OTHER, SELFPAY ==
[2022-05-20] VITALS (7 sets, daily range): BP systolic 90–130; BP diastolic 60–73; PULSE 69–75; RESP 14–18; TEMP 36.2–36.7; O2SAT 97–100; BMI 32.4
[2022-05-20] MEDS: Lactated Ringers 1,000 ML 15 ML IV (10:23)
--- NOTE | 2022-05-20 11:00 | HP.PCM_ITS ---
HPI - General General Date of Admission: 05/20/22 Date of Service: 05/20/22 Chief Complaint: Screening colonoscopy HPI Narrative ERIK SHEPHERD, is a 62 F who presents today for screening colonoscopy. She denies any abdominal pain. She denies any nausea, vomiting or diarrhea. She had a colonoscopy approximately 3 years ago and 3 polyps removed during that time. She has no change in bowel habits. She has a past medical history of hypertension, hypothyroidism which are under control. All 16 review of systems are negative except as per implies mentioned HPI. [facility] Medical History Anxiety Arthritis Back pain Cancer Chronic fatigue Cyst of ovary Depression Dietary restriction DVT (deep venous thrombosis) EGD neg Dr suarez with biopsy Fibroids Fibromyalgia Gastric reflux GERD (gastroesophageal reflux disease) History of steroid therapy Hyperlipidemia Hypertension Hypothyroid IBS (irritable bowel syndrome) Menopause polyps Post-menopausal Recurrent UTI Smoker Thyroid cancer Thyroid disease Wears glasses Home Medications omega-3 fatty acids 1,000 mg capsule (Fish Oil Concentrate) 1,000 mg PO DAILY 01/13/18 [History Last Taken Unknown] multivitamin 1 cap PO DAILY 02/10/19 [History Last Taken Unknown] albuterol sulfate 90 mcg/actuation aerosol inhaler (Ventolin HFA) 1 puff inhalation Q4H PRN shortness of breath or wheezing #8 grams 09/22/21 [Rx Last Taken Unknown] duloxetine 60 mg capsule,delayed release (Cymbalta) 60 mg PO DAILY #90 caps 09/22/21 [Rx Last Taken Unknown] levothyroxine 137 mcg tablet 137 mcg PO DAILY #90 tabs 09/22/21 [Rx Last Taken Unknown] metoprolol succinate 25 mg tablet,extended release 24 hr 25 mg PO DAILY #90 tabs 09/22/21 [Rx Last Taken Unknown] pantoprazole 40 mg tablet,delayed release 40 mg PO DAILY #90 tabs 09/22/21 [Rx Last Taken Unknown] ascorbic acid (vitamin C) 500 mg tablet (Vitamin C) 500 mg PO DAILY 05/13/22 [History Last Taken Unknown] psyllium husk (with sugar) 3.4 gram/12 gram oral powder (Fiber (psyllium husk- sugar)) 1 tbsp PO DAILY 05/13/22 [History Last Taken Unknown] Allergy/AdvReac Type Severity Reaction Status Date / Time clindamycin Allergy Severe Rash Verified 05/20/22 10:17 Penicillins Allergy Other Verified 05/20/22 10:17 levofloxacin [From Levaquin] AdvReac Intermediate tendon pain Verified 05/20/22 10:17 penicillin G AdvReac Intermediate u Verified 05/20/22 10:17 [From Bicillin C-R] penicillin G procaine AdvReac Intermediate u Verified 05/20/22 10:17 [From Bicillin C-R] Vteqbbm-IBF-YxQ Reductase AdvReac Intermediate increase Verified 05/20/22 10:17 Inhibitor fibromyalgia [Ouolzah-Zis-Ddg Reductase Inhibitor] Family History Other Breast cancer Diabetes High cholesterol Hypertension Hypothyroid Ovarian cancer Prostate cancer Surgical History H/O thyroidectomy History of colonoscopy History of total abdominal hysterectomy and bilateral salpingo-oophorectomy Social History Smoking Status: Heavy Smoker (>10/day) ROS Review of Systems ROS Unobtainable: other Constitutional Constitutional: Denies fatigue, fever(s), poor appetite, weight gain or weight loss ENT HEENT: Denies mouth lesions Cardiovascular Cardiovascular: Denies abdominal bloating, abdominal edema or abdominal pain Respiratory/Chest Respiratory/Chest: Denies change in mental status, change in phlegm color, chest congestion or chest tightness Gastrointestinal Gastrointestinal: Denies belching, bloating, change in bowel habits, change in stool character, chewing difficulty, coffee ground emesis, constipation, cramping, diarrhea, dyspepsia, dysphagia, early satiety, excessive flatus, fecal incontinence, heartburn, hematemesis, hematochezia, hemorrhoids, loose stools, melena, nausea, odynophagia, rectal bleeding, tenesmus, vomiting or weight changes Genitourinary Genitourinary: Denies abdominal discomfort, burning urination or itching Musculoskeletal Musculoskeletal: Reports as per HPI; Denies muscle weakness or myalgias Integumentary Integumentary: Denies jaundice Neurologic Neurologic: Denies lack of coordination or weakness Psychiatric Psychiatric: Denies confusion, depression, memory loss, mood swings, paranoia or suicidal ideation Endocrine Endocrinology: Denies systems reviewed and no addt'l complaints, except as documented Hematologic/Lymphatic Hematologic/Lymphatic: Denies anemia, easy bleeding, easy bruising or lymphadenopathy Allergic/Immunologic Allergic/Immunologic: Denies systems reviewed and no addt'l complaints, except as documented Vital Signs Vital Signs Vital Signs: 05/20/22 10:24 05/20/22 10:24 Temperature 98.1 F Temperature Source Temporal Pulse Rate 75 Respiratory Rate 18 Respiratory Pattern Normal Blood Pressure 130/73 H Blood Pressure Mean 92 Blood Pressure Source Monitor Blood Pressure Position Semi-Fowlers Blood Pressure Location Right Arm Pulse Ox 100 Oxygen Delivery Method Room Air Weight Weight: 195 lb Body Mass Index (BMI) 32.4 Physical Exam Const alert General Appearance: cooperative Orientation / Consciousness: oriented to person HEENT hearing grossly normal bilaterally Head and Scalp: normal to inspection Face and Sinus: face symmetric Nose: external nose normal Mouth: oral and palatal mucosa normal Eyes conjunctivae normal General Eye: normal appearance of both eyes Neck full ROM General: normal visual inspection Lymph Lymphatic: no lymphadenopathy noted Chest inspection of chest normal and palpation of chest normal Chest: symmetrical chest wall rise Resp normal respiratory effort Effort and Inspection: able to speak in complete sentences Cardio regular rate GI non-distended Percussion: normal to percussion Rectal Exam: deferred Neuro Speech: speech normal Gait (Neuro): normal gait Assessment & Plan Assessment/Plan (1) Encounter for screening for malignant neoplasm of colon: PLAN: She was explained alternatives, risk, benefits including outstanding bleeding, infection, sepsis, perforation, need for emergent surgery . She will have an ASA of 2.
--- NOTE | 2022-05-20 11:00 | COLBX_PTH ---
PATIENT: ERIK SHEPHERD LOC: EN U#:[id number] AGE/SX: 62/F ROOM: RE05/20/[address]: Dr. Kenneth Verde DO : 1960 BED: DIS: 05/20/2022 SPEC #: [id number] RECD: 05/20/22 13:35 STATUS: GISELLE RETanna #: [id number] RACHEL: 05/20/22 11:[address]: Kenneth Verde DEPT: SURGICAL PATHOLOGY RECD BY: Yanna Morrow ENTERED: 05/21/22 07:55 SP TYPE: COLON BX OTHR DR: Angelita Faulkner, FLOOR PERSON-C Tissues: A - COLON BIOPSY B - Descending colon Procedures: Surgery Specimen Level IV HEADER OPERATION: Colonoscopy ? open access (MAC), biopsy PRE-OP DIAGNOSIS: Screening TISSUE SUBMITTED: A ? Hepatic flexure polyp biopsy, B ? Descending polyp biopsy MICROSCOPIC DIAGNOSIS A. Colonic polyp at hepatic flexure, biopsy: Tubular adenoma. B. Descending colon polyp, biopsy: Tubular adenoma. AM:terry 05/24/2022 MICROSCOPIC DESCRIPTION Slides are reviewed. GROSS DESCRIPTION A - Received in fixative is one container labeled with the patient's name and designated hepatic flexure polyp biopsy. The specimen consists of one irregular fragment of light [place] soft tissue that measures 0.3 x 0.3 x 0.1 cm. The specimen is totally submitted in one cassette. B - Received in fixative is one container labeled with the patient's name and designated descending polyp biopsy. The specimen consists of one irregular fragment of [place] soft tissue that measures 0.3 x 0.2 x 0.1 cm. The specimen is totally submitted in one cassette. / SJ:terry 05/21/2022 TC:5 [facility]: [id number] x2
--- NOTE | 2022-05-20 11:34 | OP.COLON_ITS ---
Patient Name: Deana Carreno Procedure Date: 05/20/2022 10:57 AM Date of : 1960 Age: 62 Procedure: Colonoscopy Indications: Surveillance: Personal history of colonic polyps (unknown histology) on last colonoscopy 3 years ago Providers: Kenneth Verde DO Referring MD: Kenneth Verde DO Medicines: Monitored Anesthesia Care Patient Profile: This is a 62 year old female. Refer to note in patient chart for documentation of history and physical. Last Colonoscopy: 3 years ago. Complications: No immediate complications. Procedure: Pre-Anesthesia Assessment: - Prior to the procedure, a History and Physical was performed, and patient medications and allergies were reviewed. The risks and benefits of the procedure and the sedation options and risks were discussed with the patient. All questions were answered and informed consent was obtained. Patient identification and proposed procedure were verified by the physician in the pre-procedure area. Mental Status Examination: alert and oriented. Airway Examination: normal oropharyngeal airway and neck mobility. Respiratory Examination: clear to auscultation. CV Examination: normal. Prophylactic Antibiotics: The patient does not require prophylactic antibiotics. Prior Anticoagulants: The patient has taken no previous anticoagulant or antiplatelet agents. ASA Grade Assessment: II - A patient with mild systemic disease. After reviewing the risks and benefits, the patient was deemed in satisfactory condition to undergo the procedure. The anesthesia plan was to use monitored anesthesia care (MAC). Immediately prior to administration of medications, the patient was re-assessed for adequacy to receive sedatives. The heart rate, respiratory rate, oxygen saturations, blood pressure, adequacy of pulmonary ventilation, and response to care were monitored throughout the procedure. The physical status of the patient was re-assessed after the procedure. After I obtained informed consent, the scope was passed under direct vision. Throughout the procedure, the patient's blood pressure, pulse, and oxygen saturations were monitored continuously. The colonoscope was introduced through the anus and advanced to the cecum, identified by appendiceal orifice and ileocecal valve. The colonoscopy was performed without difficulty. The patient tolerated the procedure well. The quality of the bowel preparation was good. Scope In: 11:11:15 AM Scope Withdrawal Time 0 hours 12 minutes 9 seconds Scope Out: 11:26:38 AM Total Procedure Duration Time 0 hours 15 minutes 23 seconds Findings: The perianal and digital rectal examinations were normal. Non-bleeding internal hemorrhoids were found during retroflexion. The hemorrhoids were Grade III (internal hemorrhoids that prolapse but require manual reduction). Two sessile polyps were found in the descending colon and hepatic flexure. The polyps were 1 to 2 mm in size. These polyps were removed with a jumbo cold forceps. Resection and retrieval were complete. Verification of patient identification for the specimen was done. Estimated blood loss was minimal. Impression: - Non-bleeding internal hemorrhoids. - Two 1 to 2 mm polyps in the descending colon and at the hepatic flexure, removed with a jumbo cold forceps. Resected and retrieved. Recommendation: - Repeat colonoscopy in 5 years for surveillance. - Continue present medications. Procedure Code(s): --- Professional --- 63758, Colonoscopy, flexible; with biopsy, single or multiple CPT copyright 2017 [employer]. All rights reserved. The codes documented in this report are preliminary and upon forest fire prevention specialist review may be revised to meet current compliance requirements. Kenneth Verde DO 05/20/2022 11:33:48 AM This report has been signed electronically. Number of Addenda: 0 Note Initiated On: 05/20/2022 10:57 AM
--- NOTE | 2022-05-20 11:35 | OP.CCLET_ITS ---
05/20/2022 Angelita Faulkner NP [facility] [address] [place] [id number] Re : Colonoscopy procedure for Deana Carreno Dear Ms. Faulkner This procedure was performed on May. My impressions and recommendations are as follows: Impressions : - Non-bleeding internal hemorrhoids. - Two 1 to 2 mm polyps in the descending colon and at the hepatic flexure, removed with a jumbo cold forceps. Resected and retrieved. Recommendations : - Repeat colonoscopy in 5 years for surveillance. - Continue present medications. My findings are described in the full procedure note, which is enclosed. If I can be of further assistance, please feel free to contact me at . Sincerely, Kenneth Verde, 05/20/2022 11:33:48 AM This report has been signed electronically.
== END 2022-05-20 12:25 | disposition home or self-care (01) ==
LOC: EN 09:57 → AC 09:59
PROVIDERS: PCP Nurse Practitioner; Referring Provider Internal Medicine Gastroenterology; Visit Provider Internal Medicine Gastroenterology
PROC: 0DJD8ZZ Inspection of Lower Intestinal Tract, Via Natural or Artificial Opening Endoscopic (ICD-10-PCS; CPT 45378; principal; 2022-05-20 10:55)
DX: D12.4 Benign neoplasm of descending colon (principal); Z12.11 Encounter for screening for malignant neoplasm of colon; E78.5 Hyperlipidemia, unspecified; F17.200 Nicotine dependence, unspecified, uncomplicated; K64.2 Third degree hemorrhoids; I10 Essential (primary) hypertension; D12.3 Benign neoplasm of transverse colon; E03.9 Hypothyroidism, unspecified; Z79.899 Other long term (current) drug therapy; Z79.890 Hormone replacement therapy; Z87.19 Personal history of other diseases of the digestive system
CPT/HCPCS: 45380; 88305; J2405

== ENCOUNTER → 2022-09-15 | Outpatient (CLI) | payer OTHER, SELFPAY ==
[2022-09-15 20:55] LABS: Absolute Lymphocyte Count 1.99 X10^3/uL (0.83-4.51); Basophil# 0.04 X10^3/uL; Basophil% 0.6 % (0-1); Eosinophil# 0.11 X10^3/uL; Eosinophils% 1.7 % (0-5); Hematocrit 42.9 % (37-47); Hemoglobin 14.4 g/dL (12.0-15.0); Lymphocyte # 1.99 X10^3/ul (0.83-4.51); Mean Corp Hgb Conc 33.6 g/dL (32-36); Mean Corpuscular Hgb 31.7 pg (27.0-32.0); Mean Corpuscular Volume 94.5 fL (81-99); Mean Platelet Vol. 9.8 fl (6.2-12.0); Monocyte# 0.46 X10^3/uL; Monocyte% 6.9 % (0-10); NRBC Flagged by Analyzer 0 % (0-5); Neutrophil # 4.01 X10^3/uL (2.7-7.7); Neutrophil % 60.5 % (47-70); Platelet Count 289 K/mm3 (150-450); RBC Distribution Width CV 11.7 % (11.6-14.6); RBC Distribution Width SD 40.9 fl (35.1-43.9); Red Blood Count 4.54 M/mm3 (4.2-5.4); White Blood Count 6.6 K/mm3 (4.4-11.0)
[2022-09-15 21:18] LABS: ALB/GLOB Ratio 1.1 RATIO (0.9-2.4); AST(SGOT) 11 U/L (15-37); Alanine Aminotransfer ALT/SGPT 19 U/L (13-56); Albumin, Serum 3.7 g/dL (3.2-5.0); Alkaline Phosphatase 63 U/L (45-117); Anion Gap 6 (5-15); BUN 11 mg/dL (7-18); BUN/Creat Ratio 12.9 RATIO (10-20); Calcium,Total 8.8 mg/dL (8.5-10.1); Chloride 100 mmol/L (98-107); Cholesterol 258 mg/dL (200); Creatinine, Serum 0.85 mg/dL (0.55-1.02); EST Glomerular Filtration Rate 72 mL/min (>60); Est Glom Filt Rate - Afr Amer 87 mL/min (>60); Globulin 3.4 g/dL (2.2-4.2); Glucose 83 mg/dL (74-106); High Density Lipoprotein 63 mg/dL; Protein, Total 7.1 g/dL (6.4-8.2); Sodium Level 131 mmol/L (136-145); Thyroid Stim Hormone (TSH) 0.08 uIU/mL (0.358-3.74); Triglycerides 125 mg/dL; Very Low Density Lipoprotein 25 mg/dL (5-40)
[2022-09-15 21:20] LABS: Hemoglobin A1c 5.3 % (3.8-5.6)
== END | disposition home or self-care (01) ==
PROVIDERS: PCP Nurse Practitioner; Referring Provider Nurse Practitioner; Visit Provider Nurse Practitioner
DX: I10 Essential (primary) hypertension (principal); E03.9 Hypothyroidism, unspecified; F41.9 Anxiety disorder, unspecified; E78.00 Pure hypercholesterolemia, unspecified; R73.9 Hyperglycemia, unspecified
CPT/HCPCS: 80053; 80061; 83036; 84443; 85025

== ENCOUNTER → 2022-12-20 | Outpatient (CLI) | payer OTHER, SELFPAY ==
[2022-12-20 21:36] LABS: Cholesterol 196 mg/dL (200); High Density Lipoprotein 63 mg/dL; Thyroid Stim Hormone (TSH) 2.08 uIU/mL (0.358-3.74); Triglycerides 187 mg/dL; Very Low Density Lipoprotein 37 mg/dL (5-40)
== END | disposition home or self-care (01) ==
PROVIDERS: PCP Nurse Practitioner; Visit Provider Nurse Practitioner
DX: E03.9 Hypothyroidism, unspecified (principal); E78.5 Hyperlipidemia, unspecified
CPT/HCPCS: 80061; 84443

== ENCOUNTER → 2023-07-26 | Outpatient (CLI) | payer OTHER, SELFPAY ==
[2023-07-26 21:16] LABS: Absolute Lymphocyte Count 2.28 X10^3/uL (0.83-4.51); Absolute Neutrophil Count 3.8 X10^3/uL (2.0-7.7); Basophil# 0.06 X10^3/uL; Basophil% 0.9 % (0-1); Eosinophil# 0.12 X10^3/uL; Eosinophils% 1.8 % (0-5); Hematocrit 40.5 % (37-47); Hemoglobin 13.6 g/dL (12.0-15.0); Lymphocyte # 2.28 X10^3/ul (0.83-4.51); Mean Corp Hgb Conc 33.6 g/dL (32-36); Mean Corpuscular Hgb 31.9 pg (27.0-32.0); Mean Corpuscular Volume 94.8 fL (81-99); Mean Platelet Vol. 9.8 fl (6.2-12.0); Monocyte# 0.47 X10^3/uL; NRBC Flagged by Analyzer 0 % (0-5); Neutrophil # 3.76 X10^3/uL (2.7-7.7); Neutrophil % 56.2 % (47-70); Platelet Count 277 K/mm3 (150-450); RBC Distribution Width SD 41.7 fl (35.1-43.9); Red Blood Count 4.27 M/mm3 (4.2-5.4); White Blood Count 6.7 K/mm3 (4.4-11.0)
[2023-07-26 21:32] LABS: ALB/GLOB Ratio 1.2 RATIO (0.9-2.4); AST(SGOT) 15 U/L (15-37); Alanine Aminotransfer ALT/SGPT 17 U/L (13-56); Albumin, Serum 3.7 g/dL (3.2-5.0); Alkaline Phosphatase 53 U/L (45-117); Anion Gap 8 (5-15); BUN 10 mg/dL (7-18); BUN/Creat Ratio 12.4 RATIO (10-20); Calcium,Total 8.7 mg/dL (8.5-10.1); Chloride 98 mmol/L (98-107); Cholesterol 281 mg/dL (200); Creatinine, Serum 0.81 mg/dL (0.55-1.02); EST Glomerular Filtration Rate 76 mL/min (>60); Est Glom Filt Rate - Afr Amer 92 mL/min (>60); Glucose 88 mg/dL (74-106); High Density Lipoprotein 61 mg/dL; Potassium 4.5 mmol/L (3.5-5.1); Protein, Total 6.7 g/dL (6.4-8.2); Sodium Level 131 mmol/L (136-145); Triglycerides 230 mg/dL; Very Low Density Lipoprotein 46 mg/dL (5-40)
[2023-07-27 15:29] LABS: Thyroid Stim Hormone (TSH) 2.77 uIU/mL (0.358-3.74)
== END | disposition home or self-care (01) ==
PROVIDERS: PCP Nurse Practitioner; Visit Provider Nurse Practitioner
DX: I10 Essential (primary) hypertension (principal); E78.5 Hyperlipidemia, unspecified; E03.9 Hypothyroidism, unspecified
CPT/HCPCS: 80053; 80061; 84443; 85025

== ENCOUNTER → 2024-09-11 | Outpatient (CLI) | payer OTHER, SELFPAY ==
[2024-09-11 21:50] LABS: Hematocrit 41.2 % (37-47); Hemoglobin 14.5 g/dL (12.0-15.0); Immature Granulocytes Count 0.010 X10^3/uL (0.0-0.0); Mean Corp Hgb Conc 35.2 g/dL (32-36); Mean Corpuscular Volume 91.8 fL (81-99); Mean Platelet Vol. 9.7 fl (6.2-12.0); NRBC Flagged by Analyzer 0 % (0-5); Platelet Count 273 K/mm3 (150-450); RBC Distribution Width CV 11.9 % (11.6-14.6); RBC Distribution Width SD 40.2 fl (35.1-43.9); Red Blood Count 4.49 M/mm3 (4.2-5.4); White Blood Count 7.0 K/mm3 (4.4-11.0)
[2024-09-11 22:16] LABS: AST(SGOT) 17 U/L (<=31); Alanine Aminotransfer ALT/SGPT 12 U/L (<=34); Albumin, Serum 4.3 g/dL (3.4-4.8); Alkaline Phosphatase 65 U/L (35-104); Anion Gap 11 (5-15); BUN 10 mg/dL (4-19); BUN/Creat Ratio 11.3 RATIO (10-20); Calcium,Total 9.4 mg/dL (7.6-11.0); Carbon Dioxide 23.8 mmol/L (21.0-32.0); Chloride 98 mmol/L (98-108); Cholesterol 278 mg/dL (<=200); Globulin 2.5 g/dL (2.2-4.2); Glucose 90 mg/dL (70-99); Low Density Lipoprotein Calc. 173 mg/dL; Potassium 4.6 mmol/L (3.3-5.1); Triglycerides 217 mg/dL; Very Low Density Lipoprotein 43 mg/dL (5-40); cholesterol:hdl ratio screen 4.54
== END | disposition home or self-care (01) ==
PROVIDERS: PCP Nurse Practitioner; Referring Provider Nurse Practitioner; Visit Provider Nurse Practitioner
DX: E03.9 Hypothyroidism, unspecified (principal); E78.2 Mixed hyperlipidemia; I10 Essential (primary) hypertension
CPT/HCPCS: 80053; 80061; 84443; 85025